=== PATIENT | female | born 1985 | race Caucasian/White ===

== ENCOUNTER 2020-02-10 11:30 | Emergency (ER) | payer SELFPAY ==
[~2020-02-10] VITALS: Ht 167.6 cm; Wt 83.9 kg
[2020-02-10] MEDS ORDERED: CHANTIX1 M1 PO (11:52)
[2020-02-10] MEDS ORDERED: PREDNISONE20 M1 PO (11:55)
== END 2020-02-10 12:12 | disposition home or self-care (01) ==
LOC: ED 11:30
DX: L23.7 Allergic contact dermatitis due to plants, except food (principal); Z88.6 Allergy status to analgesic agent; Z87.891 Personal history of nicotine dependence

== ENCOUNTER 2020-03-29 21:37 | Emergency (ER) | payer SELFPAY ==
[~2020-03-29] VITALS: Ht 170.1 cm; Wt 81.6 kg
[~2020-03-29 21:37] MED LIST: CHANTIX1 M1 PO; PREDNISONE20 M1 PO
== END 2020-03-30 02:11 | disposition left against medical advice (07) ==
LOC: ED 21:37
DX: T78.02XA Anaphylactic reaction due to shellfish (crustaceans), initial encounter (principal); Z91.013 Allergy to seafood; Z88.6 Allergy status to analgesic agent; Y92.89 Other specified places as the place of occurrence of the external cause

== ENCOUNTER → 2020-12-29 | Outpatient (CLI) | payer SELFPAY | END | disposition home or self-care (01) | LOC: COVID19 13:56 | PROVIDERS: ATTEND Internal Medicine | DX: U07.1 COVID-19 (principal) ==